=== PATIENT | male | born 1975 | race Caucasian/White ===

== ENCOUNTER 2018-09-15 13:33 | Emergency (ER) | payer MEDICAID ==
[~2018-09-15] VITALS: Ht 175.3 cm; Wt 74.4 kg
--- NOTE | 2018-09-15 13:44 | NUR ---
EMERGENCY COMMENT PER PT BONG ZALDIVAR
--- NOTE | 2018-09-15 13:45 | NUR ---
43 YEAR OLD MALE [id number], HAD SEIZURE EPISODE FOR 1.5 MINS, ASSISTED ON THE GROUND. ALERT AND ORIENTED X3 BREATHING EVEN AND UNLABORED WITH NO DISTREE NOTED. SKIN WARM TO TOUCH AND INTACT. AWAITING TO BE SEEN BY
[2018-09-15] MEDS ORDERED: LEVETIRACETAM (500MG) 500 MG in IV NS 0.9% 100 ML IV ONE (14:30)
--- NOTE | 2018-09-15 14:30 | NUR ---
ADDENDUM: Intravenous End Time Documentation: Keppra 500 mg IVPB: start time:1430 PM ; end time: 1500 PM : IV site: LAC # 22 Port # 1
[2018-09-15 14:37] LABS: BASOPHILS # (AUTO) 0.1 /CMM (0.0-0.2); BASOPHILS % (AUTO) 1.2 % (0.0-2.0); EOSINOPHILS % (AUTO) 2.1 % (0.0-6.0); HEMATOCRIT 27 % (39-51); HEMOGLOBIN 8.8 g/dL (13.5-17.5); LYMPHOCYTES # (AUTO) 2.1 /CMM (0.8-4.8); LYMPHOCYTES % (AUTO) 30.3 % (20.0-44.0); MEAN CORPUSCULAR HGB CONC 33 g/dl (31.0-36.0); MEAN CORPUSCULAR VOLUME 81 fL (80-96); MONOCYTES % (AUTO) 14.4 % (2.0-12.0); NEUTROPHILS # (AUTO) 3.6 /CMM (1.8-8.9); PLATELET COUNT (AUTO) 185 /CMM (150-450); RED BLOOD CELL COUNT(AUTO) 3.28 MIL/uL (4.5-6.0)
[2018-09-15 14:44] LABS: CALCIUM, SERUM 8.9 mg/dL (8.5-10.1); CARBON DIOXIDE 26 mmol/L (21-32); CHLORIDE 99 mmol/L (98-107); CREATININE 3.6 mg/dL (0.6-1.3); GLUCOSE 173 mg/dL (74-106); POTASSIUM 3.6 mmol/L (3.5-5.1); SODIUM SERUM 137 mmol/L (136-145); UREA NITROGEN, BLOOD 64 mg/dL (7-18)
[2018-09-15 14:50] LABS: ALANINE AMINOTRANSFERASE 31 U/L (12-78); ALBUMIN 2.8 g/dL (3.4-5.0); ALCOHOL, BLOOD < 3 mg/dL (0-0); ALKALINE PHOSPHATASE 97 U/L (46-116); ASPARTATE AMINOTRANSFERASE 31 U/L (15-37); BILIRUBIN,DIRECT 0.1 mg/dL (0.0-0.2); BILIRUBIN,TOTAL 0.2 mg/dL (0.2-1.0); TOTAL PROTEIN, SERUM 6.3 g/dL (6.4-8.2)
--- NOTE | 2018-09-15 15:35 | NUR ---
CALLED [facility] FOR BLS TRANSFER ETA [id number] TRIP # [phone]
--- NOTE | 2018-09-15 15:48 | NUR ---
SPOKE TO JOELLE FROM [facility] REPORT WAS GIVEN
--- NOTE | 2018-09-15 16:30 | NUR ---
EMT AT BEDSIDE TO TAKE PATIENT BACK TO FACILITY
[2018-09-15 16:42] VITALS: BP 144/80
--- NOTE | 2018-09-15 16:42 | NUR ---
DCPatient discharged to home in stable condition. Written and verbal after care instructions given. Patient verbalizes understanding of instruction.
--- NOTE | 2018-09-15 16:42 | NUR ---
IV removed. Catheter intact and site benign. Pressure and 4x4 applied to site. No bleeding noted.
== END 2018-09-15 16:44 | disposition home or self-care (01) ==
LOC: ER 13:36
DX: G40.909 Epilepsy, unspecified, not intractable, without status epilepticus (principal); D64.9 Anemia, unspecified; E11.22 Type 2 diabetes mellitus with diabetic chronic kidney disease; I12.0 Hypertensive chronic kidney disease with stage 5 chronic kidney disease or end stage renal disease; N18.6 End stage renal disease; N17.9 Acute kidney failure, unspecified; Z99.2 Dependence on renal dialysis; Z88.5 Allergy status to narcotic agent
CPT/HCPCS: 36415; 80048; 80076; 80307 ×2; 85025; 85730; 96365; 99283; J1953; J7030; G0480